=== PATIENT | female | born 1980 ===

== ENCOUNTER 2017-02-15 13:32 | Inpatient (IN) | payer OTHER ==
[2017-02-15] MEDS ORDERED: Sodium Chloride 0.9% 1,000 ML IV STA (14:20)
--- NOTE | 2017-02-15 14:25 | ED PDOC ---
HPI: General Adult Time Seen by Provider: 02/15/17 14:19 Chief Complaint (Nursing): Abdominal Pain Chief Complaint (Provider): abdominal pain History Per: Patient History/Exam Limitations: no limitations Recently: Seen In ED Additional Complaint(s): 36yo female complaining of right sided abdominal pain radiating to the back, nausea, fever 2 days ago. +Hx gallstones diagnosed in ED 2 months ago, unable to obtain access to care or surgeon thereafter. States pain worse w eating, + nausea/vomiting Past Medical History Reviewed: Historical Data, Nursing Documentation, Vital Signs Vital Signs: Last Vital Signs Temp 99 F 02/15/17 13:41 Pulse 110 H 02/15/17 13:41 Resp 20 02/15/17 13:41 BP 132/99 H 02/15/17 13:41 Pulse Ox 99 02/15/17 14:27 - Medical History PMH: Gall Bladder Disease - Surgical History Other surgeries: 2 children youngest 5yrs old - Family History Family History: States: Unknown Family Hx - Living Arrangements Living Arrangements: With Family - Social History Current smoker - smoking cessation education provided: No Drugs: Denies - Home Medications Home Medications: Ambulatory Orders Medication Instructions Recorded traMADol/Acetaminophen [Ultracet 1 tab PO Q6 PRN #20 tab 12/11/16 325 MG-37.5 MG] - Allergies Allergies/Adverse Reactions: Allergies Allergy/AdvReac Type Severity Reaction Status Date / Time No Known Allergies Allergy Verified 02/15/17 13:41 Review of Systems ROS Statement: Except As Marked, All Systems Reviewed And Found Negative Constitutional: Positive for: Fever Gastrointestinal: Positive for: Nausea, Abdominal Pain Musculoskeletal: Positive for: Back Pain Physical Exam - Reviewed Nursing Documentation Reviewed: Yes Vital Signs Reviewed: Yes - Physical Exam Appears: Positive for: Well, Non-toxic, No Acute Distress Head Exam: Positive for: ATRAUMATIC, NORMAL INSPECTION, NORMOCEPHALIC Skin: Positive for: Warm, Dry Eye Exam: Positive for: EOMI, PERRL Cardiovascular/Chest: Positive for: Regular Rate, Rhythm Respiratory: Positive for: Normal Breath Sounds. Negative for: Rales, Rhonchi, Wheezing Gastrointestinal/Abdominal: Positive for: Soft, Tenderness (right upper quadrant ), Other (+murphys) Extremity: Positive for: Normal ROM Neurologic/Psych: Positive for: Alert, Oriented - Laboratory Results Result Diagrams: 02/15/17 15:30 04/03/17 15:30 - ECG O2 Sat by Pulse Oximetry: 99 (RA) Pulse Ox Interpretation: Normal Medical Decision Making Medical Decision Makin old chart reviewed, seen last month for cholelithiasis. will repeat us workup for cholecystitis. US Abdomen, labs, IV fluids, toradol ordered. US demonstrates gallstones. Lipase pending Transaminases elevating. CT abd pelv ordered. Endorsed Dr Melgar pending CT abd pelv Results explained in chinese via [employer] interpreting. Disposition - Clinical Impression Clinical Impression: Abdominal pain, Cholelithiasis - Patient ED Disposition Is Patient to be Admitted: Transfer of Care Counseled Patient/Family Regarding: Studies Performed - Disposition Disposition: Transfer of Care Disposition Time: 18:51 Condition: STABLE Patient Signed Over To: Vicky Melgar Handoff Comments: pending CT Abd pelv and dispo Additional Comments - Additional Comments Additional Comments: Scribe Attestation: Documented by Sebastián Malin, acting as a scribe for Ras Godoy DO. Provider Scribe Attestation: All medical record entries made by the Scribe were at my direction and personally dictated by me. I have reviewed the chart and agree that the record accurately reflects my personal performance of the history, physical exam, medical decision making, and the department course for this patient. I have also personally directed, reviewed, and agree with the discharge instructions and disposition.
[2017-02-15 15:47] LABS: BASO % 0.3 % (0.0-2.0); EOS % 0.1 % (0.0-4.0); HEMATOCRIT 40.1 % (34.0-47.0); MEAN CELL VOLUME 86.8 fl (81.0-99.0); MEAN CORPUSCULAR HEMOGLOBIN 29.5 pg (27.0-31.0); MEAN PLATELET VOLUME 7.3 fl (7.2-11.7); MONO # 0.5 K/uL (0.0-0.8); MONO % 9.3 % (0.0-10.0); NEUT # 4.1 K/uL (1.8-7.0); NEUT % 72.3 % (50.0-75.0); NRBC % 0.2 % (0.0-0.0); WHITE BLOOD COUNT 5.7 K/uL (4.8-10.8)
[2017-02-15 15:58] LABS: ALB/GLOB RATIO 1.2 (1.0-2.1); ALKALINE PHOSPHATASE 80 U/L (38-126); ALT/SGPT 59 U/L (9-52); AST/SGOT 46 U/L (14-36); BILIRUBIN,TOTAL 1.9 mg/dl (0.2-1.3); BLOOD UREA NITROGEN 11 mg/dl (7-17); CALCIUM 9.2 mg/dL (8.4-10.2); CARBON DIOXIDE 27 mmol/L (22-30); CHLORIDE 101 mmol/L (98-107); GFR AFRICAN-AMERICAN > 60; GLUCOSE,RANDOM 100 mg/dL (65-105); SODIUM 143 mmol/l (132-148)
[2017-02-15 16:01] LABS: RBC URINE 5 /hpf (0-3); URINE BILIRUBIN NEGATIVE (NEGATIVE); URINE BLOOD NEGATIVE (NEGATIVE); URINE COLOR YELLOW (YELLOW); URINE GLUCOSE (UA) NEG (Normal); URINE KETONE NEGATIVE (NEGATIVE); URINE LEUKOCYTE ESTERASE TRACE Leu/uL (Negative); URINE PROTEIN NEGATIVE (NEGATIVE); URINE UROBILINOGEN 0.2-1.0 mg/dL (0.2-1.0); WBC URINE 9 /hpf (0-5)
--- NOTE | 2017-02-15 16:25 | US ---
Abdominal ultrasound in 02/15/2017. History: RUQ pain. Sonographic evaluation of the a limited to the right upper quadrant of the abdomen performed and compared with prior study 12/11/2016. Findings: The liver exhibits normal size measuring approximately 13.0 cm in CC dimension. . The liver demonstrates smooth contour and normal echotexture without obvious mass collection or calcification. No obvious hepatic mass or collection.. No ascites. The gallbladder appears physiologically distended. Re- demonstrated is intraluminal gallbladder calculi which exhibit posterior acoustic shadowing. Gallbladder wall measures 3 mm which is upper limits of normal in thickness. .No evidence of pericholecystic fluid collections or sonographic Mitchell sign. Common bile duct measures approximate 4 mm. Visualized portions of the pancreas unremarkable without evidence of mass collection calcification or significant ductal dilatation. . Spleen and left kidney have not been evaluated on this exam. . Right kidney appears unremarkable without shadowing calculi or hydronephrosis. No renal mass or collection seen. . Impression: Cholelithiasis. No evidence of pericholecystic fluid collections or sonographic Mitchell sign seen at this time to suggest acute cholecystitis
[2017-02-15] MEDS ORDERED: Iohexol 240 (50 ml) PO ONE (18:49)
[2017-02-15] MEDS ORDERED: Iohexol 240 (50 ml) ONE (19:19)
[2017-02-15] MEDS ORDERED: Sodium Chloride 0.9% 50 ML IV ONE (21:20)
[2017-02-15] MEDS ORDERED: Iohexol 300 100 ML IJ ONE (21:20)
--- NOTE | 2017-02-15 22:35 | CT ---
EXAM: CT Abdomen and Pelvis With Intravenous Contrast CLINICAL HISTORY: 36 years old, female; Pain; Abdominal pain; Localized; Right upper quadrant (ruq); Prior surgery; Surgery date: 6+ months; Surgery type: 2 c-sections; Patient HX: Gb disease; Additional info: Ruq abdominal pain. TECHNIQUE: Axial computed tomography images of the abdomen and pelvis with intravenous contrast. This CT exam was performed using one or more of the following dose reduction techniques: automated exposure control, adjustment of the mA and/or kV according to patient size, and/or use of iterative reconstruction technique. Coronal and sagittal reformatted images were created and reviewed. CONTRAST: 80 mL of [id number] administered intravenously. COMPARISON: No relevant prior studies available. FINDINGS: Lower thorax: LEFT lower lobe calcified granuloma. ABDOMEN: Liver: Unremarkable. No mass. Gallbladder and bile ducts: No calcified stones. No ductal dilation. Pancreas: No ductal dilation. No mass. Spleen: No splenomegaly. Adrenals: No mass. Kidneys and ureters: No mass. No hydronephrosis. Stomach and bowel: No definite mural thickening. No obstruction. Appendix: Normal caliber. No inflammation. PELVIS: Bladder: Unremarkable. Reproductive: Small ovarian follicles. 1.5 x 1.5 x 1.3 cm hypodense lesion within LEFT ovary. ABDOMEN and PELVIS: Intraperitoneal space: No significant fluid collection. No free air. Bones/joints: No acute fracture. Soft tissues: Unremarkable. Vasculature: Unremarkable. No abdominal aortic aneurysm. Lymph nodes: No pathologically enlarged lymph nodes. IMPRESSION: 1. Probable LEFT ovarian cyst/dominant follicle. Consider ultrasound. 2. Incidental/non-acute findings are described above.
--- NOTE | 2017-02-15 22:58 | ED PDOC ---
- Laboratory Results Result Diagrams: 02/15/17 15:30 02/15/17 15:30 - ECG O2 Sat by Pulse Oximetry: 100 Pulse Ox Interpretation: Normal - Progress ED Course And Treament: 7p Rec'd from Dr Godoy. Pt with abdominal pain, h/o gallstones and increased transminases c/w previous. US demonstrated cholelithiasis, otherwise unremarkable. Pending CT abdomen. Accession No. : [id number] Patient Name / ID : TIM AUGUSTE / [id number] Exam Date : 02/15/2017 22:10:01 ( Approved ) Study Comment : Sex / Age : F / 36Y Creator : Cameron Lundberg MD Dictator : Recreational Leader : Owner/Photographer : Cameron Lundberg MD Approver2 : Report Date : 02/15/2017 22:35:00 My Comment : [facility] Division of Radiology [address] [place] [address] Tel. no. Patient Name: YANNI NELSON Pt. Address: [address] [place] [address]. Rec #: [id number] [place] [address]: Ras Godoy DO, III Pt CELL Order Location: [facility] : 1980 Female Age: 36 Order #: [id number] Reason for exam: RUQ abdominal pain CT Scan ABD PELVIS PO IV CONTRAST Exam Date: 02/15/17 This imaging exam was performed at [facility] EXAM: CT Abdomen and Pelvis With Intravenous Contrast CLINICAL HISTORY: 36 years old, female; Pain; Abdominal pain; Localized; Right upper quadrant (ruq); Prior surgery; Surgery date: 6+ months; Surgery type: 2 c-sections; Patient HX: Gb disease; Additional info: Ruq abdominal pain. TECHNIQUE: Axial computed tomography images of the abdomen and pelvis with intravenous contrast. This CT exam was performed using one or more of the following dose reduction techniques: automated exposure control, adjustment of the mA and/or kV according to patient size, and/or use of iterative reconstruction technique. Coronal and sagittal reformatted images were created and reviewed. CONTRAST: 80 mL of [id number] administered intravenously. COMPARISON: No relevant prior studies available. FINDINGS: Lower thorax: LEFT lower lobe calcified granuloma. ABDOMEN: Liver: Unremarkable. No mass. Gallbladder and bile ducts: No calcified stones. No ductal dilation. Pancreas: No ductal dilation. No mass. Spleen: No splenomegaly. Adrenals: No mass. Kidneys and ureters: No mass. No hydronephrosis. Stomach and bowel: No definite mural thickening. No obstruction. Appendix: Normal caliber. No inflammation. PELVIS: Bladder: Unremarkable. Reproductive: Small ovarian follicles. 1.5 x 1.5 x 1.3 cm hypodense lesion within LEFT ovary. ABDOMEN and PELVIS: Intraperitoneal space: No significant fluid collection. No free air. Bones/joints: No acute fracture. Soft tissues: Unremarkable. Vasculature: Unremarkable. No abdominal aortic aneurysm. Lymph nodes: No pathologically enlarged lymph nodes. IMPRESSION: 1. Probable LEFT ovarian cyst/dominant follicle. Consider ultrasound. 2. Incidental/non-acute findings are described above. Dictated By: Cameron Lundberg MD Dictated Date/Time: 02/15/172234 Signed By: Cameron Lundberg MD Date Signed: [id number] Transcribed By: TERRELL Transcribe Date/Time : 02/15/172234 ACYP02/ASHLEE 1030p On reeval pt is in pain and nauseous. ROXANA Roberts president [employer]. Pt will be hospitalized for intractable abdominal pain. Re-evaluation Time: 22:30 Condition: Unchanged Disposition Discussed With : Mario Patino Doctor Will See Patient In The: Hospital Counseled Patient/Family Regarding: Studies Performed, Diagnosis - Clinical Impression Clinical Impression: Abdominal pain, Cholelithiasis - POA Present On Arrival: None - Disposition Disposition: Hospitalized as Observation Patient Disposition Time: 19:00 Condition: SERIOUS
[2017-02-15] MEDS ORDERED: Sodium Chloride 0.9% 1,000 ML IV SCH (23:30)
--- NOTE | 2017-02-15 23:36 | CP.PCM.HP ---
History of Present Illness - History of Present Illness History of Present Illness: CC: Abd pain/RUQ pain HPI: This is a 36 y/o female who was recently diagnosed with cholelithiasis. She comes in with severe abdominal pain and n/v. She has received pain medications but is still in severe pain, and is being admitted for pain control/ obs. Denies f/c/d. ROS: 14 systems reviewed, negative other than HPI MHx: Cholelithiasis SHx: C sec x 2 Allergies: NKDA Medications: Per med rec Family Hx: Reviewed, none relevant Social Hx: Lives with family, no tobacco or EtOH Present on Admission - Present on Admission Any Indicators Present on Admission: No Past Patient History - Past Social History Drugs: Denies - GASTROINTESTINAL Hx Gall Bladder Disease: Yes - PSYCHIATRIC Hx Substance Use: No - SURGICAL HISTORY Hx Section: Yes - ANESTHESIA Hx Anesthesia: Yes Hx Anesthesia Reactions: No Meds Allergies/Adverse Reactions: Allergies Allergy/AdvReac Type Severity Reaction Status Date / Time No Known Allergies Allergy Verified 02/15/17 13:41 Physical Exam - Constitutional Appears: No Acute Distress - Head Exam Head Exam: ATRAUMATIC - Eye Exam Eye Exam: EOMI, PERRL - ENT Exam ENT Exam: Mucous Membranes Moist - Neck Exam Neck exam: Positive for: Full Rom - Respiratory Exam Respiratory Exam: Clear to Auscultation Bilateral, NORMAL BREATHING PATTERN - Cardiovascular Exam Cardiovascular Exam: REGULAR RHYTHM, +S1, +S2 - GI/Abdominal Exam GI & Abdominal Exam: Normal Bowel Sounds, Tenderness - Extremities Exam Extremities exam: Positive for: full ROM, normal inspection - Neurological Exam Neurological exam: Alert, CN II-XII Intact, Oriented x3 - Psychiatric Exam Psychiatric exam: Normal Affect, Normal Mood - Skin Skin Exam: Dry, Warm Results - Vital Signs Recent Vital Signs: Last Vital Signs Temp 98.2 F 02/15/17 19:32 Pulse 85 02/15/17 19:32 Resp 17 02/15/17 19:32 BP 128/83 02/15/17 19:32 Pulse Ox 100 02/15/17 23:20 - Labs Result Diagrams: 02/15/17 15:30 02/15/17 15:30 - Imaging and Cardiology US - abdomen Status: Report reviewed by me (cholelithiasis) CT scan - abdomen Status: Report reviewed by me (Cholelithiasis) Assessment & Plan (1) Cholelithiasis Assessment and Plan: 36 y/o female with cholelithiasis coming in with RUQ pain not resolved with pain medications thus far. -Obs -NPO, IVF per surgery -Pain control IV, Nausea control with zofran IV -SCDs for DVT PPx Status: Acute
[2017-02-16] MEDS ORDERED: DiphenhydrAMINE 50 mg/ml Inj IVP STA (00:05)
[2017-02-16] MEDS ORDERED: DiphenhydrAMINE 50 mg/ml Inj ONE (00:11)
--- NOTE | 2017-02-16 00:13 | CP.PCM.CON ---
<Lyssa Roberts - Last Filed: 02/16/17 00:23> History of Present Illness - History of Present Illness History of Present Illness: GENERAL SURGERY CONSULT NOTE FOR DR. WEBER 36 yo female w/ history of cholelithiasis presents to the ED with RUQ abdominal pain associated with eating. Pt states that she first had the pain in June of 2016. In September she was diagnosed with cholelithiasis at a clinic. On 12/11/16 at [facility] she was seen in the ED for abdominal pain and was found to have gallstones on ultrasound. She was discharged with pain medication and told to follow up with a surgeon at the clinic, but never did. For the past 3 days, her pain has been worse than ever and when she called the community surgical clinic they advised her to go to the ED. She states she has been unable to eat all day , because it aggravates the pain/ She claims pain is unrelated to the kind of food she eats. Pt states the pain is worst in her RUQ and radiating down to her R leg. She also complains of nausea, headache and dizziness, but denies vomiting , chest pain, shortness of breath, or diarrhea. Last bowel movement was yesterday. PMHx: cholelithiasis PSH: 2 sections (2002, 2010) Allergies: NKDA Soc: (-) EtOH, drugs, tobacco Review of Systems - Review of Systems All systems: reviewed and no additional remarkable complaints except (As per HPI ) Past Patient History - Past Medical History & Family History Past Medical History?: No - Past Social History Smoking Status: Never Smoked Chewing Tobacco Use: No Cigar Use: No Alcohol: None Drugs: Denies - CARDIAC Hx Hypertension: No - GASTROINTESTINAL Hx Gall Bladder Disease: Yes - PSYCHIATRIC Hx Substance Use: No - SURGICAL HISTORY Hx Section: Yes (x2) - ANESTHESIA Hx Anesthesia: Yes Hx Anesthesia Reactions: No Meds Allergies/Adverse Reactions: Allergies Allergy/AdvReac Type Severity Reaction Status Date / Time morphine Allergy RASH Verified 02/16/17 00:54 - Medications Medications: Current Medications Dextrose/Lactated Ringer's (Dextrose 5%/Lactated Ringer's) 1,000 mls @ 100 mls/ hr IV .Q10H SHWETHA Sodium Chloride (Sodium Chloride 0.9%) 1,000 mls @ 100 mls/hr IV .Q10H SHWETHA Stop: 02/16/17 19:29 Morphine Sulfate (Morphine) 2 mg IVP Q4 PRN PRN Reason: Pain, moderate (4-7) Morphine Sulfate (Morphine) 1 mg IVP Q4 PRN PRN Reason: Pain, Mild (1-3) Ondansetron HCl (Zofran Inj) 4 mg IVP Q6 PRN PRN Reason: Nausea/Vomiting Physical Exam - Constitutional Appears: Well, Non-toxic, No Acute Distress - Head Exam Head Exam: ATRAUMATIC, NORMOCEPHALIC - Eye Exam Eye Exam: EOMI. absent: Scleral icterus Pupil Exam: NORMAL ACCOMODATION, PERRL - Respiratory Exam Respiratory Exam: NORMAL BREATHING PATTERN. absent: Respiratory Distress - Cardiovascular Exam Cardiovascular Exam: +S1, +S2. absent: JVD - GI/Abdominal Exam GI & Abdominal Exam: Soft, Tenderness. absent: Distended, Firm, Guarding, Rebound, Rigid Additional comments: mild TTP in RUQ - Extremities Exam Extremities exam: Positive for: normal inspection. Negative for: pedal edema - Neurological Exam Neurological exam: Alert, Oriented x3 - Psychiatric Exam Psychiatric exam: Anxious, Normal Affect - Skin Skin Exam: Dry, Intact, Warm Results - Vital Signs Recent Vital Signs: Last Vital Signs Temp 98.2 F 02/15/17 19:32 Pulse 85 02/15/17 19:32 Resp 17 02/15/17 19:32 BP 128/83 02/15/17 19:32 Pulse Ox 100 02/15/17 23:20 - Labs Result Diagrams: 02/15/17 15:30 02/15/17 15:30 Assessment & Plan - Assessment and Plan (Free Text) Assessment: 36 yo female w/ symptomatic cholelithiasis and hyperbilirubinemia - afebrile, tachycardia on arrival, now resolved - no leukocytosis - hyperbillirubinemia, Tbilli 1.9, was 1.3 on 12/11/16 ED visit - mildly elevated LFTs - U/S showed cholelithiasis, no pericholecystic fluid, no sign of cholecystitis , CBD 4mm - CT showed L ovarian cyst - due to new onset hyperbillirubinemia and elevated LFTs will order MRCP - NPO - IV fluids - Zofran and pain meds PRN - discussed plan with Dr. Domingo Roberts - PGY 2 <Kevin Rose - Last Filed: 02/16/17 10:22> History of Present Illness - History of Present Illness History of Present Illness: Patient was seen and examined at the bedside. Agree with resident's note above Meds - Medications Medications: Current Medications Hydromorphone HCl (Dilaudid) 0.5 mg IVP Q3H PRN PRN Reason: Pain, moderate (4-7) Dextrose/Lactated Ringer's (Dextrose 5%/Lactated Ringer's) 1,000 mls @ 100 mls/ hr IV .Q10H SHWETHA Last Admin: 02/16/17 01:56 Dose: Not Given Sodium Chloride (Sodium Chloride 0.9%) 1,000 mls @ 100 mls/hr IV .Q10H SHWETHA Stop: 02/16/17 19:29 Ondansetron HCl (Zofran Inj) 4 mg IVP Q6 PRN PRN Reason: Nausea/Vomiting Results - Vital Signs Recent Vital Signs: Last Vital Signs Temp 97.5 F L 02/16/17 08:34 Pulse 64 02/16/17 08:34 Resp 20 02/16/17 08:34 BP 106/70 02/16/17 08:34 Pulse Ox 100 02/16/17 08:34 - Labs Result Diagrams: 02/16/17 05:25 02/16/17 05:25 Labs: Laboratory Results - last 24 hr 02/16/17 05:25 WBC 4.2 L RBC 4.14 Hgb 12.0 Hct 36.4 MCV 87.9 MCH 29.0 MCHC 33.0 RDW 12.8 Plt Count 252 MPV 7.4 Neut % (Auto) 48.1 L Lymph % (Auto) 36.0 [place] % (Auto) 13.9 H Eos % (Auto) 1.5 Baso % (Auto) 0.5 Neut # 2.0 Lymph # 1.5 [place] # 0.6 Eos # 0.1 Baso # 0.0 Sodium 144 Potassium 4.2 Chloride 108 H Carbon Dioxide 23 Anion Gap 17 BUN 10 Creatinine 0.6 L Est GFR ( Amer) > 60 Est GFR (Non-Af Amer) > 60 Random Glucose 71 Calcium 8.5 Total Bilirubin 1.3 AST 37 H ALT 52 Alkaline Phosphatase 74 Total Protein 6.6 Albumin 3.5 D Globulin 3.1 Albumin/Globulin Ratio 1.1
[2017-02-16] MEDS: Dextrose 5%/Lactated Ringer's 1,000 ML IV SCH ×3 (01:56→21:48)
[2017-02-16 07:38] LABS: ALB/GLOB RATIO 1.1 (1.0-2.1); ALKALINE PHOSPHATASE 74 U/L (38-126); ALT/SGPT 52 U/L (9-52); AST/SGOT 37 U/L (14-36); BILIRUBIN,TOTAL 1.3 mg/dl (0.2-1.3); BLOOD UREA NITROGEN 10 mg/dl (7-17); CALCIUM 8.5 mg/dL (8.4-10.2); CARBON DIOXIDE 23 mmol/L (22-30); CHLORIDE 108 mmol/L (98-107); GFR AFRICAN-AMERICAN > 60; GLUCOSE,RANDOM 71 mg/dL (65-105); POTASSIUM 4.2 MMOL/L (3.6-5.0); SODIUM 144 mmol/l (132-148); TOTAL PROTEIN 6.6 G/DL (6.3-8.2)
[2017-02-16 07:46] LABS: BASO % 0.5 % (0.0-2.0); EOS # 0.1 K/uL (0.0-0.7); EOS % 1.5 % (0.0-4.0); HEMATOCRIT 36.4 % (34.0-47.0); LYMPH # 1.5 K/uL (1.0-4.3); MEAN CELL VOLUME 87.9 fl (81.0-99.0); MEAN PLATELET VOLUME 7.4 fl (7.2-11.7); MONO # 0.6 K/uL (0.0-0.8); MONO % 13.9 % (0.0-10.0); NEUT % 48.1 % (50.0-75.0); NRBC % 0.1 % (0.0-0.0); RED CELL DISTRIBUTION WIDTH 12.8 % (11.5-14.5); WHITE BLOOD COUNT 4.2 K/uL (4.8-10.8)
--- NOTE | 2017-02-16 10:54 | MRI ---
MRCP Indication: Hyperbilirubinemia Technique: Multiplanar, multisequence MR images of the abdomen were obtained, including heavily T2 weighted MRCP images of the biliary system. Rotating maximum intensity projection images of the biliary system were generated. A total of 524 images were submitted for review. Comparison: CT abdomen and pelvis with contrast performed 02/15/17, limited abdominal ultrasound performed 02/15/17 Findings: Examination limited by motion. Cholelithiasis. There is no intrahepatic biliary ductal dilatation. The common bile duct appears within normal limits in caliber and tapers distally. The pancreatic duct appears within normal limits of caliber. No filling defects are seen in the common bile duct or pancreatic duct. The imaged portions of the noncontrast liver, adrenal glands, kidneys, spleen, and pancreas appear grossly unremarkable. No bulky abdominal lymphadenopathy is seen. No ascites. No acute osseous abnormality is detected. Impression: Cholelithiasis. No filling defects seen within the common bile duct which appears within normal limits of caliber.
[2017-02-16] MEDS: HYDROmorphone 0.5 mg/0.5 ml ISec IVP PRN ×2 (12:16→16:38)
--- NOTE | 2017-02-16 13:14 | CP.PCM.PN ---
Subjective - Date & Time of Evaluation Date of Evaluation: 02/16/17 Time of Evaluation: 13:00 - Subjective Subjective: No fever complains of RUQ pain radiating to the Right lower quadrant and flank no N/V no CP no SOB no urinary sxs Objective - Vital Signs/Intake and Output Vital Signs (last 24 hours): Temp Pulse Resp BP Pulse Ox 97.5 F L 64 20 106/70 100 02/16/17 08:34 02/16/17 08:34 02/16/17 08:34 02/16/17 08:34 02/16/17 08:34 - Medications Medications: Current Medications Hydromorphone HCl (Dilaudid) 0.5 mg IVP Q3H PRN PRN Reason: Pain, moderate (4-7) Last Admin: 02/16/17 12:16 Dose: 0.5 mg Dextrose/Lactated Ringer's (Dextrose 5%/Lactated Ringer's) 1,000 mls @ 100 mls/ hr IV .Q10H SHWETHA Last Admin: 02/16/17 10:56 Dose: 100 mls/hr Sodium Chloride (Sodium Chloride 0.9%) 1,000 mls @ 100 mls/hr IV .Q10H SHWETAH Stop: 02/16/17 19:29 Ondansetron HCl (Zofran Inj) 4 mg IVP Q6 PRN PRN Reason: Nausea/Vomiting - Labs Labs: 02/16/17 05:25 02/16/17 05:25 - Constitutional Appears: No Acute Distress - Head Exam Head Exam: NORMAL INSPECTION, NORMOCEPHALIC - Eye Exam Eye Exam: EOMI, Normal appearance, PERRL Pupil Exam: NORMAL ACCOMODATION - ENT Exam ENT Exam: Mucous Membranes Dry, Normal External Ear Exam - Neck Exam Neck Exam: Full ROM. absent: Meningismus - Respiratory Exam Respiratory Exam: NORMAL BREATHING PATTERN. absent: Respiratory Distress - Cardiovascular Exam Cardiovascular Exam: REGULAR RHYTHM, +S1, +S2 - GI/Abdominal Exam GI & Abdominal Exam: Soft, Tenderness, Normal Bowel Sounds Additional comments: tenderness RUQ and RLQ - Extremities Exam Extremities Exam: Full ROM, Normal Capillary Refill. absent: Calf Tenderness, Pedal Edema - Back Exam Back Exam: Full ROM, NORMAL INSPECTION. absent: CVA tenderness (L), CVA tenderness (R), paraspinal tenderness - Neurological Exam Neurological Exam: Alert, Awake, CN II-XII Intact, Normal Gait, Oriented x3 Neuro motor strength exam: Left Upper Extremity: 5, Right Upper Extremity: 5, Left Lower Extremity: 5, Right Lower Extremity: 5 - Psychiatric Exam Psychiatric exam: Normal Affect, Normal Mood - Skin Skin Exam: Dry, Normal Color, Warm Assessment and Plan (1) Symptomatic cholelithiasis Status: Acute (2) Abnormal LFTs Status: Acute - Assessment and Plan (Free Text) Assessment: 36 y/o lady with known hx of Cholelithiasis came in because of RUQ pain . Noted to have abn LFT. CT of abd: Cholelithiasis , no CBD dilatation (1) Symptomatic cholelithiasis Status: Acute Pt came with abd pain , RUQ , worse with food, + RUQ tenderness , noted abn LFTs CT of abd : Gallstone, no signs of Cholecystitis NPO IVF hydration Surgery consult MRCP done : no CBD dilatation Plan fo Lap Oralia in am (2) Abnormal LFTs Status: Acute likely sec to above DVT proph; SCD
[2017-02-17] MEDS: Dextrose 5%/Lactated Ringer's 1,000 ML IV SCH (05:00)
[2017-02-17] MEDS: HYDROmorphone 0.5 mg/0.5 ml ISec IVP PRN ×7 (06:27→18:32)
[2017-02-17 08:19] LABS: ALB/GLOB RATIO 1.1 (1.0-2.1); ALKALINE PHOSPHATASE 63 U/L (38-126); ALT/SGPT 43 U/L (9-52); AST/SGOT 34 U/L (14-36); BILIRUBIN,TOTAL 1.1 mg/dl (0.2-1.3); BLOOD UREA NITROGEN 8 mg/dl (7-17); CALCIUM 8.9 mg/dL (8.4-10.2); CARBON DIOXIDE 26 mmol/L (22-30); CHLORIDE 106 mmol/L (98-107); GFR AFRICAN-AMERICAN > 60; GLUCOSE,RANDOM 91 mg/dL (65-105); SODIUM 143 mmol/l (132-148); TOTAL PROTEIN 6.5 G/DL (6.3-8.2)
[2017-02-17 09:34] LABS: PARTIAL THROMBOPLASTIN TIME 28.7 SECONDS (23.3-32.5)
--- NOTE | 2017-02-17 10:14 | CP.PCM.PN ---
Subjective - Date & Time of Evaluation Date of Evaluation: 02/17/17 Time of Evaluation: 10:00 - Subjective Subjective: Hospitalist Progress Note (Patient was seen and examined at 10:00 AM 02/17/17 650- 1) This is a 36 y/o female who was recently diagnosed with cholelithiasis. She came in on 02/15/17 to [facility] ER with severe abdominal pain and n/v. She received pain medication while in the ER but was still in severe pain, and was admitted for pain control. Abdominal U/S 02/15/17 showed Cholelithiasis with no evidence of pericholecystic fluid collection or sonographic Mitchell's Sign to suggest acute cholecystitis. CT Abdomen/Pelvis 02/15/17 showed Left Ovarian Cyst and LLL calcified granuloma. MRCP 02/16/17 showed cholelithiasis, no filling defects within CBD which is normal in caliber. Patient is for Laporoscopic Cholecystectomy with Surgeon Dr. Rose this morning. ROS: Has not moved bowels in 3 days secondary to decreased appetite from n/v She is currently nauseous and another STAT dose of Zofran ordered Pain in the RUQ is controlled and comes and goes Dizziness comes and goes NO other complaints upon FULL ROS Exam: HEENT: NCA, EOMI, PERRLA, Dry mucous membranes in oral mucosa and nasal turbinates, NO lymphadenopathy, NO thyromegaly Cardiology: NS1 and NS2, NO M/R/G Respiratory: CTA B/L, NO R/R/W GI: RUQ pain minimal but NO rebound/guarding, Soft, BS x 4, NO HSM Ext: NO edema, Capillary Refill is 2 seconds, Pulses are strong and equal Neurology: CN II through XII are grossly intact Assessment and Plan: 1). Symptomatic Cholelithiasis For Lap Oralia with Surgery Dr. Rose this morning Dilaudid 0.5 mg IVQ3H PRN Pain Zofran 4 mg IV Q6H PRN N/V D5 LR @ 100 mL/hour Objective - Vital Signs/Intake and Output Vital Signs (last 24 hours): Temp Pulse Resp BP Pulse Ox 97.4 F L 56 L 20 109/73 99 02/17/17 08:13 02/17/17 08:13 02/17/17 08:13 02/17/17 08:13 02/17/17 08:13 Intake and Output: 02/17/17 02/17/17 06:59 18:59 Intake Total 1200 Balance 1200 - Medications Medications: Current Medications Hydromorphone HCl (Dilaudid) 0.5 mg IVP Q3H PRN PRN Reason: Pain, moderate (4-7) Last Admin: 02/17/17 06:27 Dose: 0.5 mg Dextrose/Lactated Ringer's (Dextrose 5%/Lactated Ringer's) 1,000 mls @ 100 mls/ hr IV .Q10H SHWET[facility] Last Admin: 02/17/17 05:00 Dose: Not Given Ondansetron HCl (Zofran Inj) 4 mg IVP Q6 PRN PRN Reason: Nausea/Vomiting Last Admin: 02/17/17 06:24 Dose: 4 mg - Labs Labs: 02/17/17 05:35 PT 11.1 SECONDS (9.6-11.2) 02/17/17 05:35 INR 1.07 (0.92-1.08) 02/17/17 05:35 APTT 28.7 SECONDS (23.3-32.5) 02/17/17 05:35
[2017-02-17] MEDS ORDERED: Rocuronium 10 mg/ml (5 ml) ONE (10:59)
[2017-02-17] MEDS ORDERED: Propofol 10 mg/ml Inj (20 ML) ONE (10:59)
[2017-02-17] MEDS ORDERED: Neostigmine Methylsulfate 2 MG/2 ML ML IV ONE (11:00)
[2017-02-17] MEDS ORDERED: Succinylcholine 200 mg/10 ml Inj IV ONE (11:06)
[2017-02-17] MEDS ORDERED: Bupivacaine 0.5% Inj(30mL) ONE (11:10)
[2017-02-17] MEDS ORDERED: Lactated Ringer's 1,000 ML IV ONE (11:45)
[2017-02-17] MEDS ORDERED: Bupivacaine 0.5% 50 ML IJ ONE ×2 (11:54→12:44)
--- NOTE | 2017-02-17 13:00 | PCM.SURG1 ---
Surgeon's Initial Post Op Note - Surgeon's Notes Surgeon: Dr. Rose Lumber Handler: Dr. Lane, Dr. Salcedo PGY2 Type of Anesthesia: General Endo Pre-Operative Diagnosis: Symptomatic Cholelithiasis Operative Findings: see operative report Post-Operative Diagnosis: same Operation Performed: Laparoscopic Cholecystectomy Specimen/Specimens Removed: gallbladder Estimated Blood Loss: EBL {In ML}: 5 Blood Products Given: N/A Drains Used: No Drains Post-Op Condition: Good Date of Surgery/Procedure: 02/17/17 Time of Surgery/Procedure: 12:59
--- NOTE | 2017-02-17 14:55 | OP ---
PROCEDURE DATE: 02/17/2017 PREOPERATIVE DIAGNOSIS: Symptomatic cholelithiasis. POSTOPERATIVE DIAGNOSIS: Symptomatic cholelithiasis. PROCEDURE: Laparoscopic cholecystectomy. SURGEON: Kevin Rose MD BRAZING FURNACE OPERATOR: Dr. Domingo JACKSON BRAZING FURNACE OPERATOR: Dr. Salcedo ANESTHESIA: General with endotracheal intubation. INTRAVENOUS FLUIDS: Crystalloids. ESTIMATED BLOOD LOSS: 5 mL. INTRAOPERATIVE FINDINGS: Cholelithiasis. SPECIMEN: Gallbladder with stones. BRIEF HISTORY: The patient is a very pleasant 36-year-old female who came to the hospital complaining of epigastric and right upper quadrant abdominal pain. Upon further investigation, patient was found to have elevated liver enzymes and underwent MRCP. However, there appeared to be no choledocholithiasis and subsequently, patient's liver enzymes have normalized. All the risks and benefits of the procedure were explained to the patient and with the patient having a full understanding of all the risks and benefits involved, informed consent was obtained and patient was taken to the operating room for above stated procedure. DESCRIPTION OF PROCEDURE: The patient was brought into the operating room and placed supine on the operating table. Bilateral Flowtron boots were applied to patient's lower extremities. After successful induction of anesthesia and successful endotracheal intubation by the anesthesia team, patient's abdomen was prepped with ChloraPrep stick and draped in the standard surgical fashion. Prior to the beginning of procedure, timeout was called in the room and everyone in the room were in agreement. The patient received prophylactic Ancef antibiotic. Using a Veress needle, patient's abdomen was entered at the umbilicus and pneumoperitoneum was achieved with good opening pressures. Once this was accomplished, using an 11 blade scalpel knife, approximately a 1 cm incision was made in the umbilicus in the longitudinal fashion and subsequent to that, the 11 mm trocar was introduced into the patient's abdomen. Then, subsequent to that, a 5 mm 0-degree scope was introduced into the patient's abdomen and abdomen was inspected. Attention was turned to the subxyphoid area. Using 11 blade scalpel knife, 5 mm incision was made in transverse fashion and subsequent to that, another 5 mm trocar was introduced into the patient's abdomen. Then, attention was turned to the right side of the patient' s abdomen. Using an 11 blade scalpel knife, two 5 mm incisions were made in transverse fashion using 11 blade scalpel knife and subsequent to that, another two 5 mm trocars were introduced into the patient's abdomen. At that point in time, gallbladder was grasped at the fundus and the infundibulum and using the [place] dissector, cystic duct and cystic artery were dissected out and critical view of safety was achieved. Cystic duct was clipped with 2 clips proximal and 1 distal and transected with laparoscopic scissor. Same thing was done for the cystic artery. It was clipped with 2 clips proximal and 1 distal and transected with laparoscopic scissor. At that point in time, gallbladder was dissected off the gallbladder fossa using hook electrical cautery. Once the gallbladder was completely freed up from the gallbladder fossa, EndoCatch bag was introduced into the patient's abdomen. The gallbladder was placed inside of the bag and the bag was closed. At that point in time, gallbladder fossa was inspected for hemostasis. Hemostasis was confirmed. The patient's gallbladder fossa and abdominal cavity were copiously irrigated with sterile saline and the fluid was suctioned out. At that point in time, 11 mm trocar together with EndoCatch bag and gallbladder were removed from the patient's abdomen and passed off to the [facility] as a specimen. At that point in time, fascial layer at the umbilical port site was closed with [id number] suture of 0 Vicryl on UR-5 needle. At that point in time, patient's abdomen was fully desufflated. The rest of the trocars were removed from the patient's abdomen and skin was closed with 4-0 Monocryl suture in a running subcuticular fashion. At the end of the procedure, incision sites were infiltrated with Marcaine anesthetic. The patient's abdomen was washed and dried and a Dermabond was applied to the incision sites. The patient was successfully extubated by the anesthesia team, transferred to the [facility] and taken to the recovery room in a stable condition. At the end of the procedure, all instrument counts, needles and sponges were correct. Kevin Rose MD cc: [id number] TT: 02/17/2017 14:55:27 en MTDD
[2017-02-17] MEDS: Lactated Ringer's 1,000 ML IV SCH ×2 (18:03→23:53)
[2017-02-18] MEDS ORDERED: Simethicone 80 mg Chewtab PO STA (03:19)
[2017-02-18 12:52] LABS: BASO % 0.2 % (0.0-2.0); EOS % 0.3 % (0.0-4.0); HEMATOCRIT 34.2 % (34.0-47.0); LYMPH # 1.3 K/uL (1.0-4.3); LYMPH % 18.7 % (20.0-40.0); MEAN CORPUSCULAR HEMOGLOBIN 29.8 pg (27.0-31.0); MEAN CORPUSCULAR HGB CONC 34.8 g/dL (33.0-37.0); MEAN PLATELET VOLUME 7.1 fl (7.2-11.7); MONO # 0.7 K/uL (0.0-0.8); MONO % 9.5 % (0.0-10.0); NEUT % 71.3 % (50.0-75.0); RED CELL DISTRIBUTION WIDTH 12.5 % (11.5-14.5)
[2017-02-18 12:53] LABS: MEAN CELL VOLUME 85.6 fl (81.0-99.0)
[2017-02-18 13:07] LABS: CHLORIDE 102 mmol/L (98-107)
[2017-02-18 13:08] LABS: POTASSIUM 3.8 MMOL/L (3.6-5.0); SODIUM 138 mmol/l (132-148)
[2017-02-18 13:10] LABS: ALB/GLOB RATIO 1.2 (1.0-2.1); AST/SGOT 41 U/L (14-36); BILIRUBIN,TOTAL 1.2 mg/dl (0.2-1.3); BLOOD UREA NITROGEN 7 mg/dl (7-17); CARBON DIOXIDE 28 mmol/L (22-30); GFR AFRICAN-AMERICAN > 60; TOTAL PROTEIN 6.7 G/DL (6.3-8.2)
[2017-02-18 13:11] LABS: ALKALINE PHOSPHATASE 65 U/L (38-126); ALT/SGPT 46 U/L (9-52); CALCIUM 8.6 mg/dL (8.4-10.2); GLUCOSE,RANDOM 104 mg/dL (65-105)
--- NOTE | 2017-02-18 13:19 | CP.PCM.PN ---
<Reggie Almonte - Last Filed: 02/18/17 14:20> Subjective - Date & Time of Evaluation Date of Evaluation: 02/18/17 Time of Evaluation: 11:40 - Subjective Subjective: 36 y/o F admitted for RUQ, s/p lap cholecystectomy seen on POD1 at bedside. Patient c/o abd pain in RUQ controlled with pain meds, also c/o persistent nausea without episode of vomiting since last night. She states she has only eaten 2 tsp of oatmeal since Sx and icechips because she is still nauseated and is afraid to vomit. She ambulated yesterday night with no difficulty but this morning she has not tried yet. No bowel movement or flatus reported but is aware of her own borborygmi. Denies CP, calf pain, headache, SOB. Objective - Vital Signs/Intake and Output Vital Signs (last 24 hours): Temp Pulse Resp BP Pulse Ox 98.4 F 90 20 110/66 96 02/18/17 09:00 02/18/17 07:50 02/18/17 07:50 02/18/17 09:00 02/18/17 07:50 - Medications Medications: Current Medications Lactated Ringer's (Lactated Ringer's) 1,000 mls @ 100 mls/hr IV .Q10H [facility] Last Admin: 02/17/17 23:53 Dose: Not Given Metoclopramide HCl (Reglan) 10 mg IVP Q6 [facility] Last Admin: 02/18/17 11:42 Dose: 10 mg Morphine Sulfate (Morphine) 2 mg IVP Q4 PRN PRN Reason: Pain, moderate (4-7) Morphine Sulfate (Morphine) 4 mg IVP Q4 PRN PRN Reason: Pain, severe (8-10) Ondansetron HCl (Zofran Inj) 4 mg IVP Q6 PRN PRN Reason: Nausea/Vomiting Last Admin: 02/18/17 05:57 Dose: 4 mg - Labs Labs: 02/18/17 12:40 02/18/17 12:40 PT 11.1 SECONDS (9.6-11.2) 02/17/17 05:35 INR 1.07 (0.92-1.08) 02/17/17 05:35 APTT 28.7 SECONDS (23.3-32.5) 02/17/17 05:35 - Constitutional Appears: Non-toxic - Head Exam Head Exam: ATRAUMATIC, NORMAL INSPECTION - Eye Exam Eye Exam: PERRL - ENT Exam ENT Exam: Mucous Membranes Moist, Normal Exam - Neck Exam Neck Exam: Full ROM, Normal Inspection - Respiratory Exam Respiratory Exam: Clear to Ausculation Bilateral, NORMAL BREATHING PATTERN - Cardiovascular Exam Cardiovascular Exam: REGULAR RHYTHM, +S1, +S2. absent: Murmur - GI/Abdominal Exam GI & Abdominal Exam: Soft, Tenderness (RUQ and periumbilical area. ), Normal Bowel Sounds. absent: Rebound - Extremities Exam Extremities Exam: Full ROM, Normal Capillary Refill, Normal Inspection. absent : Calf Tenderness - Neurological Exam Neurological Exam: Alert, Awake, Oriented x3 - Psychiatric Exam Psychiatric exam: Normal Affect, Normal Mood - Skin Skin Exam: Pallor (mild), Warm. absent: Rash Assessment and Plan - Assessment and Plan (Free Text) Assessment: 1) Symptomatic Cholelithiasis S/P Lap Cholecystectomy POD1 Unable to DC home due to persistent nausea, pain and not tolerating PO Switch diet to liquid WBC 7, Hgb 11.9, Hct 34.2 AST/ALT trending down Dilaudid stopped because of persistent nausea Morphine 2mg IV q4h prn for moderate pain Morphine 4mg IV q4h prn for severe pain Zofran 4 mg IV Q6H PRN N/V D5 LR @ 100 mL/hour Cont F/U Sx recommendations 2) DVT prophylaxis SCD <Ruel Lopez - Last Filed: 02/18/17 19:26> Objective - Vital Signs/Intake and Output Vital Signs (last 24 hours): Temp Pulse Resp BP Pulse Ox 98.9 F 71 18 124/80 99 02/18/17 17:04 02/18/17 17:04 02/18/17 17:04 02/18/17 17:04 02/18/17 17:04 - Medications Medications: Current Medications Sodium Chloride (Sodium Chloride 0.9%) 1,000 mls @ 80 mls/hr IV .[id number] [facility] Stop: 02/19/17 17:31 Lactulose (Enulose) 20 gm PO DAILY PRN PRN Reason: Constipation Last Admin: 02/18/17 17:31 Dose: 20 gm Metoclopramide HCl (Reglan) 10 mg IVP Q6 [facility] Last Admin: 02/18/17 16:45 Dose: 10 mg Ondansetron HCl (Zofran Inj) 4 mg IVP Q6 PRN PRN Reason: Nausea/Vomiting Last Admin: 02/18/17 05:57 Dose: 4 mg Oxycodone/Acetaminophen (Percocet 5/325 Mg Tab) 1 tab PO Q4 PRN PRN Reason: Pain, moderate (4-7) Stop: 02/21/17 17:19 Oxycodone/Acetaminophen (Percocet 5/325 Mg Tab) 2 tab PO Q6 PRN PRN Reason: Pain, severe (8-10) Stop: 02/21/17 17:20 Last Admin: 02/18/17 17:32 Dose: 2 tab Pantoprazole Sodium (Protonix Ec Tab) 40 mg PO DAILY [facility] Last Admin: 02/18/17 18:48 Dose: 40 mg - Labs Labs: 02/18/17 12:40 02/18/17 12:40 PT 11.1 SECONDS (9.6-11.2) 02/17/17 05:35 INR 1.07 (0.92-1.08) 02/17/17 05:35 APTT 28.7 SECONDS (23.3-32.5) 02/17/17 05:35 Attending/Attestation - Attestation I have personally seen and examined this patient.: Yes I have fully participated in the care of the patient.: Yes I have reviewed all pertinent clinical information, including history, physical exam and plan: Yes Notes (Text): 02/18/17 19:21 Hospitalist Addendum Note Patient was seen and examined at 10:50 AM 02/18/17 in 650-1 Exam, Assessment and Plan were thoroughly discussed with the Wireless Sales Representative. At the time of my exam, patient had just vomited up some the bannana and oatmeal that she had tried to eat for breakfast. Her diet was changed back to clear liquids and then for this evening her diet was changes to Regular by my colleague Dr. Watson. There was the possibility of the pain medication Dilaudid as the cause of ther nausea leading to vomiting therefore this was changed to Percocet. Disposition: if she tolerates her diet, if pain is controlled, if no more episodes of n/v, and she has bowel movement/flatus, then consider for discharge morning of 02/19/17 after speaking with Surgery. Ruel Lopez D.O. 02/18/17 19:26
--- NOTE | 2017-02-18 16:00 | CP.PCM.PN ---
Subjective - Date & Time of Evaluation Date of Evaluation: 02/18/17 Time of Evaluation: 07:15 - Subjective Subjective: GENERAL SURGERY Progress Note 36 yo female seen at bedside 1 day status post laparoscopic cholecystectomy. Pt reports post-operative nausea and vomitting last event of note was yesterday evening @10pm. Pt denies fever and chills at this time. Pt has right upper flank pain/discomfort. Pts rigtical site is painful graded 5/10 under control with pain control meds. Objective - Vital Signs/Intake and Output Vital Signs (last 24 hours): Temp Pulse Resp BP Pulse Ox 97.8 F 74 16 121/72 98 02/18/17 13:00 02/18/17 13:00 02/18/17 13:00 02/18/17 13:00 02/18/17 13:00 - Medications Medications: Current Medications Lactated Ringer's (Lactated Ringer's) 1,000 mls @ 100 mls/hr IV .Q10H [facility] Last Admin: 02/17/17 23:53 Dose: Not Given Metoclopramide HCl (Reglan) 10 mg IVP Q6 [facility] Last Admin: 02/18/17 11:42 Dose: 10 mg Morphine Sulfate (Morphine) 2 mg IVP Q4 PRN PRN Reason: Pain, moderate (4-7) Morphine Sulfate (Morphine) 4 mg IVP Q4 PRN PRN Reason: Pain, severe (8-10) Ondansetron HCl (Zofran Inj) 4 mg IVP Q6 PRN PRN Reason: Nausea/Vomiting Last Admin: 02/18/17 05:57 Dose: 4 mg - Labs Labs: 02/18/17 12:40 02/18/17 12:40 PT 11.1 SECONDS (9.6-11.2) 02/17/17 05:35 INR 1.07 (0.92-1.08) 02/17/17 05:35 APTT 28.7 SECONDS (23.3-32.5) 02/17/17 05:35 - Constitutional Appears: Well, Non-toxic, No Acute Distress - Eye Exam Eye Exam: Normal appearance, PERRL - ENT Exam ENT Exam: Mucous Membranes Moist, Normal Exam - Respiratory Exam Respiratory Exam: Clear to Ausculation Bilateral, NORMAL BREATHING PATTERN - Cardiovascular Exam Cardiovascular Exam: REGULAR RHYTHM, +S1, +S2 - GI/Abdominal Exam GI & Abdominal Exam: Tenderness. absent: Distended, Firm, Rigid Additional comments: Incision sites are well coapted. no tatianna-incisional drainage, hematoma, or erythema. - Neurological Exam Neurological Exam: Alert, Awake, Oriented x3 - Skin Skin Exam: Intact, Normal Color, Warm Assessment and Plan - Assessment and Plan (Free Text) Assessment: 36 year old female 1 day S/p Laparoscopic Cholecystectomy Plan: Pt evaluated at bedside with attending Dr. Lane. - Contunue diet as tolerated. - Adjusted pain meds - Pt to begin ambulating and weight-bearing as tolerated. - Continue to monitor status pos-operatively.
[2017-02-18] MEDS: Lactated Ringer's 1,000 ML IV SCH (16:46)
[2017-02-18] MEDS ORDERED: Oxycodone/Acetaminophen 5/325 mg Tab PO PRN ×2 (17:18→17:19)
[2017-02-18] MEDS: Pantoprazole 40 mg EC Tab PO SCH (18:48)
[2017-02-18] MEDS: Sodium Chloride 0.9% 1,000 ML IV SCH (21:27)
[2017-02-19] MEDS: Sodium Chloride 0.9% 1,000 ML IV SCH (06:00)
[2017-02-19 07:50] VITALS: BP 110/74; PULSE 85; RESP 20; TEMP 98.8; O2SAT 97
--- NOTE | 2017-02-19 07:50 | CP.PCM.PN ---
Subjective - Date & Time of Evaluation Date of Evaluation: 02/19/17 Time of Evaluation: 07:48 - Subjective Subjective: General Surgery - Dr. Rose Pt S&E. HUGO. Pt states her pain is better today, only has mild pain to the incisions. Pt is tolerating regular diet. She has been OOB ambulating. No N/V , F/C, SOB/CP Objective - Vital Signs/Intake and Output Vital Signs (last 24 hours): Temp Pulse Resp BP Pulse Ox 97.8 F 74 19 116/74 96 02/19/17 01:00 02/18/17 21:00 02/18/17 21:00 02/18/17 21:00 02/18/17 21:00 - Medications Medications: Current Medications Sodium Chloride (Sodium Chloride 0.9%) 1,000 mls @ 80 mls/hr IV .[id number] [facility] Stop: 02/19/17 17:31 Last Admin: 02/19/17 06:00 Dose: Not Given Lactulose (Enulose) 20 gm PO DAILY PRN PRN Reason: Constipation Last Admin: 02/18/17 17:31 Dose: 20 gm Metoclopramide HCl (Reglan) 10 mg IVP Q6 [facility] Last Admin: 02/19/17 04:00 Dose: Not Given Ondansetron HCl (Zofran Inj) 4 mg IVP Q6 PRN PRN Reason: Nausea/Vomiting Last Admin: 02/18/17 05:57 Dose: 4 mg Oxycodone/Acetaminophen (Percocet 5/325 Mg Tab) 1 tab PO Q4 PRN PRN Reason: Pain, moderate (4-7) Stop: 02/21/17 17:19 Oxycodone/Acetaminophen (Percocet 5/325 Mg Tab) 2 tab PO Q6 PRN PRN Reason: Pain, severe (8-10) Stop: 02/21/17 17:20 Last Admin: 02/18/17 17:32 Dose: 2 tab Pantoprazole Sodium (Protonix Ec Tab) 40 mg PO DAILY [facility] Last Admin: 02/18/17 18:48 Dose: 40 mg - Labs Labs: 02/18/17 12:40 02/18/17 12:40 PT 11.1 SECONDS (9.6-11.2) 02/17/17 05:35 INR 1.07 (0.92-1.08) 02/17/17 05:35 APTT 28.7 SECONDS (23.3-32.5) 02/17/17 05:35 - Constitutional Appears: No Acute Distress - Head Exam Head Exam: ATRAUMATIC, NORMOCEPHALIC - Respiratory Exam Respiratory Exam: NORMAL BREATHING PATTERN. absent: Respiratory Distress - Cardiovascular Exam Cardiovascular Exam: REGULAR RHYTHM - GI/Abdominal Exam GI & Abdominal Exam: Soft, Tenderness (appropriate). absent: Distended, Guarding, Rigid, Rebound Additional comments: incisions C/D/I with dermabond - Neurological Exam Neurological Exam: Alert, Oriented x3 - Psychiatric Exam Psychiatric exam: Normal Affect, Normal Mood - Skin Skin Exam: Dry, Intact Assessment and Plan - Assessment and Plan (Free Text) Assessment: 36yo F s/p lap cholecystectomy, POD #2 -Doing well post-operatively -Regular diet -PO pain meds -Clear for discharge from surgical standpoint -Pt may shower and resume regular light activities, avoid heavy lifting >10lbs -Pt may F/U in office w/ Dr. Rose [place] [address] Milton Salcedo PGY2
[2017-02-19 07:52] LABS: BASO % 0.2 % (0.0-2.0); EOS % 0.6 % (0.0-4.0); HEMATOCRIT 35.5 % (34.0-47.0); LYMPH # 1.5 K/uL (1.0-4.3); LYMPH % 20.5 % (20.0-40.0); MEAN CELL VOLUME 86.9 fl (81.0-99.0); MEAN CORPUSCULAR HEMOGLOBIN 29.4 pg (27.0-31.0); MEAN CORPUSCULAR HGB CONC 33.8 g/dL (33.0-37.0); MEAN PLATELET VOLUME 7.6 fl (7.2-11.7); MONO # 0.7 K/uL (0.0-0.8); MONO % 9.2 % (0.0-10.0); NEUT # 5.1 K/uL (1.8-7.0); NEUT % 69.5 % (50.0-75.0); RED CELL DISTRIBUTION WIDTH 12.6 % (11.5-14.5); WHITE BLOOD COUNT 7.3 K/uL (4.8-10.8)
[2017-02-19 07:53] LABS: ALB/GLOB RATIO 1.1 (1.0-2.1); ALKALINE PHOSPHATASE 77 U/L (38-126); ALT/SGPT 52 U/L (9-52); AST/SGOT 60 U/L (14-36); BILIRUBIN,TOTAL 1.2 mg/dl (0.2-1.3); BLOOD UREA NITROGEN 5 mg/dl (7-17); CALCIUM 8.4 mg/dL (8.4-10.2); CARBON DIOXIDE 28 mmol/L (22-30); CHLORIDE 104 mmol/L (98-107); GFR AFRICAN-AMERICAN > 60; GLUCOSE,RANDOM 84 mg/dL (65-105); POTASSIUM 3.7 MMOL/L (3.6-5.0); SODIUM 144 mmol/l (132-148); TOTAL PROTEIN 7.1 G/DL (6.3-8.2)
[2017-02-19] MEDS: Pantoprazole 40 mg EC Tab PO SCH (08:34)
--- NOTE | 2017-02-19 09:11 | CP.PCM.DIS ---
Provider - Provider Date of Admission: 02/16/17 17:24 Attending physician: Mario Patino MD Time Spent in preparation of Discharge (in minutes): 35 Diagnosis - Discharge Diagnosis (1) Symptomatic cholelithiasis Status: Acute Comment: Improved. S/P lap Cholecystectomy. Stable. F/U with Sx in 1 week Hospital Course - Lab Results Lab Results: Most Recent Lab Values WBC 7.3 K/uL (4.8-10.8) 02/19/17 05:20 RBC 4.09 Mil/uL (3.80-5.20) 02/19/17 05:20 Hgb 12.0 g/dL (12.0-16.0) 02/19/17 05:20 Hct 35.5 % (34.0-47.0) 02/19/17 05:20 MCV 86.9 fl (81.0-99.0) 02/19/17 05:20 MCH 29.4 pg (27.0-31.0) 02/19/17 05:20 MCHC 33.8 g/dL (33.0-37.0) 02/19/17 05:20 RDW 12.6 % (11.5-14.5) 02/19/17 05:20 Plt Count 303 K/uL (130-400) 02/19/17 05:20 MPV 7.6 fl (7.2-11.7) 02/19/17 05:20 Neut % (Auto) 69.5 % (50.0-75.0) 02/19/17 05:20 Lymph % (Auto) 20.5 % (20.0-40.0) 02/19/17 05:20 Edwards % (Auto) 9.2 % (0.0-10.0) 02/19/17 05:20 Eos % (Auto) 0.6 % (0.0-4.0) 02/19/17 05:20 Baso % (Auto) 0.2 % (0.0-2.0) 02/19/17 05:20 Neut # 5.1 K/uL (1.8-7.0) 02/19/17 05:20 Lymph # 1.5 K/uL (1.0-4.3) 02/19/17 05:20 Edwards # 0.7 K/uL (0.0-0.8) 02/19/17 05:20 Eos # 0.0 K/uL (0.0-0.7) 02/19/17 05:20 Baso # 0.0 K/uL (0.0-0.2) 02/19/17 05:20 PT 11.1 SECONDS (9.6-11.2) 02/17/17 05:35 INR 1.07 (0.92-1.08) 02/17/17 05:35 APTT 28.7 SECONDS (23.3-32.5) 02/17/17 05:35 Sodium 144 mmol/l (132-148) 02/19/17 05:20 Potassium 3.7 MMOL/L (3.6-5.0) 02/19/17 05:20 Chloride 104 mmol/L (98-107) 02/19/17 05:20 Carbon Dioxide 28 mmol/L (22-30) 02/19/17 05:20 Anion Gap 16 (10-20) 02/19/17 05:20 BUN 5 mg/dl (7-17) L 02/19/17 05:20 Creatinine 0.7 mg/dL (0.7-1.2) 02/19/17 05:20 Est GFR ( Amer) > 60 02/19/17 05:20 Est GFR (Non-Af Amer) > 60 02/19/17 05:20 Random Glucose 84 mg/dL (65-105) 02/19/17 05:20 Calcium 8.4 mg/dL (8.4-10.2) 02/19/17 05:20 Total Bilirubin 1.2 mg/dl (0.2-1.3) 02/19/17 05:20 AST 60 U/L (14-36) H D 02/19/17 05:20 ALT 52 U/L (9-52) 02/19/17 05:20 Alkaline Phosphatase 77 U/L (38-126) 02/19/17 05:20 Total Protein 7.1 G/DL (6.3-8.2) 02/19/17 05:20 Albumin 3.7 g/dL (3.5-5.0) 02/19/17 05:20 Globulin 3.3 gm/dL (2.2-3.9) 02/19/17 05:20 Albumin/Globulin Ratio 1.1 (1.0-2.1) 02/19/17 05:20 Lipase 69 U/L (23-300) 02/15/17 18:35 Urine Color Yellow (YELLOW) 02/15/17 15:20 Urine Clarity Slighty-cloudy (Clear) 02/15/17 15:20 Urine pH 7.0 (5.0-8.0) 02/15/17 15:20 Ur Specific [place] 1.013 (1.003-1.030) 02/15/17 15:20 Urine Protein Negative mg/dL (NEGATIVE) 02/15/17 15:20 Urine Glucose (UA) Neg mg/dL (Normal) 02/15/17 15:20 Urine Ketones Negative mg/dL (NEGATIVE) 02/15/17 15:20 Urine Blood Negative (NEGATIVE) 02/15/17 15:20 Urine Nitrate Negative (NEGATIVE) 02/15/17 15:20 Urine Bilirubin Negative (NEGATIVE) 02/15/17 15:20 Urine Urobilinogen 0.2-1.0 mg/dL (0.2-1.0) 02/15/17 15:20 Ur Leukocyte Esterase Trace Denita/uL (Negative) 02/15/17 15:20 Urine RBC (Auto) 5 /hpf (0-3) H 02/15/17 15:20 Urine Microscopic WBC 9 /hpf (0-5) H 02/15/17 15:20 Ur Squamous Epith Cells 5 /hpf (0-5) 02/15/17 15:20 Urine HCG, Qual Negative (NEGATIVE) 02/16/17 05:00 - Hospital Course Hospital Course: 36 y/o F, admitted for persistent RUQ associated with nausea and vomiting. No fever, palpitations, diarrhea, CP, headache or SOB at the time. She was admitted for further evaluation by Sx team. Abd US, abd CT and MRCP showed Cholelithiasis without cholecystitis or duct obstruction. Bili was elevated on admission(1.9). Patient was started on IV Abx(Unasyn), pain meds and zofran. She underwent Lap Cholecystectomy because of symptomatic cholelithiasis and on POD1 she was stable but nauseated and unable to tolerated PO. Abd soft, tender, no rebound or guarding. She continued afebrile and bili trending down. She was evaluated with the Sx team and recs were follow to keep patient in the hospital due to persistent nausea, unable to tolerate PO and pain. Today POD2 patient is doing better. She is evaluated at bedside in not acute distress. Afebrile. Pain has improved. +Flatus. No new episodes of vomiting and nausea has resolved since yesterday evening. Tolerating PO reg diet. Bili today 1.2. CBC WNL. Discussed with Sx resident and patient is cleared from Sx point of view with f/u with Dr Rose in 1 week. Discharge Exam - Head Exam Head Exam: ATRAUMATIC, NORMOCEPHALIC - Eye Exam Eye Exam: EOMI, Normal appearance, PERRL - ENT Exam ENT Exam: Normal Exam - Neck Exam Neck exam: Full Rom, Normal Inspection - Respiratory Exam Respiratory Exam: Clear to PA & Lateral, NORMAL BREATHING PATTERN, UNREMARKABLE - Cardiovascular Exam Cardiovascular Exam: REGULAR RHYTHM, RRR, +S1, +S2. absent: Systolic Murmur - GI/Abdominal Exam GI & Abdominal Exam: Normal Bowel Sounds, Tenderness (RUQ and periumbilical area tenderness. No rebound or guarding.). absent: Distended, Rebound - Extremities Exam Extremities exam: full ROM, normal capillary refill - Back Exam Back exam: NORMAL INSPECTION. absent: CVA tenderness (L), CVA tenderness (R) - Neurological Exam Neurological exam: Alert, CN II-XII Intact, Oriented x3, Reflexes Normal - Psychiatric Exam Psychiatric exam: Normal Affect, Normal Mood - Skin Skin Exam: Normal Color, Warm Discharge Plan - Discharge Medications Prescriptions: Docusate [Colace] 100 mg PO BID #14 cap oxyCODONE/Acetaminophen [Percocet 5/325 mg Tab] 1 tab PO Q4 PRN #20 tab PRN Reason: Pain, Moderate (4-7) Pantoprazole [Protonix EC Tab] 40 mg PO DAILY #14 ect Metoclopramide [Reglan] 10 mg PO Q8 #10 tab - Follow Up Plan Condition: SERIOUS Disposition: HOME/ ROUTINE Instructions: Laparoscopic Cholecystectomy (DC) Additional Instructions: F/U with Surgery, Dr Rose in 1 week. If patient needs PMD she can f/u at [address] for primary care. Referrals: Kevin Rose MD [Staff Provider] - 1 Week
== END 2017-02-19 12:09 | disposition home or self-care (01) | DRG 494 ==
LOC: H.ER 13:32 → H.ERHOLD 19:00 → H.EROBSV 19:00 → H.MEDSURG1 02-16 01:34 → OBSVTOIN 02-16 17:24
PROVIDERS: ADMIT Internal Medicine; ATTEND Internal Medicine
PROC: 0FT44ZZ Resection of Gallbladder, Percutaneous Endoscopic Approach (ICD-10-PCS; principal; 2017-02-17 11:45)
DX: K80.20 Calculus of gallbladder without cholecystitis without obstruction (principal)

== ENCOUNTER 2018-05-12 18:25 | Emergency (ER) | payer SELFPAY ==
[2018-05-12 18:37] VITALS: RESP 18; O2SAT 100
[2018-05-12] MEDS ORDERED: Iohexol 240 (50 ml) PO ONE (19:21)
[2018-05-12] MEDS ORDERED: Sodium Chloride 0.9% 1,000 ML IV STA (19:22)
--- NOTE | 2018-05-12 20:32 | ED PDOC ---
"HPI: Abdomen Time Seen by Provider: 05/12/18 19:07 Chief Complaint (Nursing): Abdominal Pain History Per: Patient History/Exam Limitations: no limitations Onset/Duration Of Symptoms: Days Outside of [place] travel?: No Current Symptoms Are (Timing): Still Present Location Of Pain/Discomfort: RLQ Quality Of Discomfort: Cramping Associated Symptoms: Nausea, Diarrhea, Constipation. denies: Fever, Chills, Vomiting Additional Complaint(s): No PMHx presenting with abdominal pain x 4 days, states it's R sided, R flank and RLQ/suprapubic, constant, she states it's associated with both constipation and diarrhea, states she has not been able to have a normal BM since the pain started. No vomiting. No urinary symptoms, no fevers. S/P 2 C-sections and cholecystectomy. Past Medical History Reviewed: Historical Data, Nursing Documentation, Vital Signs Vital Signs: Last Vital Signs Temp 98.3 F 05/12/18 18:30 Pulse 88 05/12/18 18:30 Resp 18 05/12/18 18:30 BP 138/93 H 05/12/18 18:30 Pulse Ox 100 05/12/18 20:40 - Medical History PMH: Gall Bladder Disease Denies: HIV, HTN, Chronic Kidney Disease - Family History Family History: States: Unknown Family Hx - Home Medications Home Medications: Ambulatory Orders Medication Instructions Recorded Docusate [Colace] 100 mg PO BID #14 cap 02/19/17 Metoclopramide [Reglan] 10 mg PO Q8 #10 tab 02/19/17 Pantoprazole [Protonix EC Tab] 40 mg PO DAILY #14 ect 02/19/17 oxyCODONE/Acetaminophen [Percocet 1 tab PO Q4 PRN #20 tab 02/19/17 5/325 mg Tab] Simethicone [Gas Relief] 80 mg PO BID #20 tab.chew 05/13/18 - Allergies Allergies/Adverse Reactions: Allergies Allergy/AdvReac Type Severity Reaction Status Date / Time morphine Allergy RASH Verified 05/12/18 18:29 Review of Systems ROS Statement: Except As Marked, All Systems Reviewed And Found Negative Gastrointestinal: Positive for: Nausea, Abdominal Pain, Diarrhea, Constipation Physical Exam - Reviewed Nursing Documentation Reviewed: Yes Vital Signs Reviewed: Yes - Physical Exam Appears: Positive for: Well, Non-toxic, No Acute Distress Head Exam: Positive for: ATRAUMATIC, NORMAL INSPECTION, NORMOCEPHALIC Skin: Positive for: Normal Color, Warm, DRY Eye Exam: Positive for: EOMI, Normal appearance, PERRL ENT: Positive for: Normal ENT Inspection Neck: Positive for: Normal, Painless ROM Cardiovascular/Chest: Positive for: Regular Rate, Rhythm Respiratory: Positive for: CNT, Normal Breath Sounds Gastrointestinal/Abdominal: Positive for: Normal Exam, Bowel Sounds, Soft, Tenderness (Negative McBurney's, tender in suprapubic/R suprapubic region) Back: Positive for: R CVA Tenderness Extremity: Positive for: Normal ROM Neurologic/Psych: Positive for: Alert, Oriented - Laboratory Results Result Diagrams: 05/12/18 20:51 05/12/18 20:51 - ECG O2 Sat by Pulse Oximetry: 100 Pulse Ox Interpretation: Normal Medical Decision Making Medical Decision MakinPM A/P: Hx of c-sections, cholecystectomy presenting with abdominal pain -patient is very well appearing, normal vital signs -symptoms are vague, unclear as to etiology -ddx: kidney stone v. uti v. pyelo v. appendicitis v. colitis v. gas v. IBS -will get labs, imaging -will give toradol, bentyl, and IVF -pending re-eval after workup 3AM EXAM: CT Abdomen and Pelvis With Intravenous Contrast EXAM DATE/TIME: 05/13/2018 CLINICAL HISTORY: 37 years old, female; Pain; Abdominal pain; Localized; Right; Prior surgery; Surgery date: 6+ months; Surgery type: Gall bladder removed. x 2; Additional info: R sided abdominal pain x 4 days TECHNIQUE: Axial computed tomography images of the abdomen and pelvis with intravenous contrast. All CT scans at this facility use at least one of these dose optimization techniques: automated exposure control; mA and/or kV adjustment per patient size (includes targeted exams where dose is matched to clinical indication); or iterative reconstruction. Oral contrast was administered. CONTRAST: 90 ml of [id number] administered intravenously. COMPARISON: No relevant prior exam is available at the time of interpretation. FINDINGS: Lower thorax: No pulmonary airspace consolidation or pleural fluid collection in the imaged portion of the thorax. ABDOMEN: Liver: Diffuse fatty infiltration of the liver. Gallbladder and bile ducts: Status post cholecystectomy. No biliary ductal dilation. Pancreas: No acute findings. Spleen: No acute findings. Adrenals: No acute findings. Kidneys and ureters: No acute findings. Stomach and bowel: No bowel obstruction or other evident acute abnormality of the stomach, small bowel, or colon. Appendix: Normal appendix. 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 If there is a discrepancy between the preliminary and final interpretation, please notify [facility] via [email or web address]. If you do not have access to our QA portal, call our QA team at [phone] CONFIDENTIALITY STATEMENT This report is intended only for the use of the referring physician, and only in accordance with law, If you received this in error, call [phone] Page 2 of 2 Bladder: Mild circumferential bladder wall thickening. The bladder is only mildly distended. Reproductive: An 18 mm peripherally enhancing, low attenuation left adnexal lesion is consistent with an ovarian corpus luteum. Apparent small uterine fibroids. No evident acute abnormality of the gynecologic structures. ABDOMEN and PELVIS: Intraperitoneal space: No free intraperitoneal air. A small amount of free fluid in the posterior cul de sac is physiologic in amount. Bones/joints: No acute findings. Several subcentimeter sclerotic bone lesions are likely bone islands. Soft tissues: No acute findings. Vasculature: No acute findings. The abdominal aorta is normal in caliber. Lymph nodes: No enlarged abdominal or pelvic lymph nodes by CT criteria. IMPRESSION: 1. Normal appendix. 2. Mild circumferential bladder wall thickening may be artifactual due to limited luminal distention but differential diagnosis also includes cystitis. 3. 18 mm left ovarian corpus luteum. 4. Additional non-acute findings as described above. Thank you for allowing us to participate in the care of your patient. Dictated and Authenticated by: Brenda Lipscomb MD 05/13/2018 1:38 AM Eastern Time ([place] & [place]) Patient re-evaluated, states she's feeling much better after simethicone. Patient was given results and advised to followup in clinic. Return precautions discussed. Disposition - Clinical Impression Clinical Impression: Gas pain - Patient ED Disposition Is Patient to be Admitted: No - Disposition Referrals: [facility] [Outside] Disposition: Routine/Home Disposition Time: 03:29 Condition: IMPROVED Prescriptions: Simethicone [Gas Relief] 80 mg PO BID #20 tab.chew Instructions: Gas and Bloating Forms: [facility] (Iranian) Print Language: WELSH"
[2018-05-12 20:58] LABS: BASO % 0.3 % (0.0-2.0); EOS # 0.1 K/uL (0.0-0.7); EOS % 0.9 % (0.0-4.0); HEMOGLOBIN 13.9 g/dL (12.0-16.0); LYMPH # 2.2 K/uL (1.0-4.3); LYMPH % 25.3 % (20.0-40.0); MEAN CELL VOLUME 88.4 fl (81.0-99.0); MEAN CORPUSCULAR HEMOGLOBIN 30.2 pg (27.0-31.0); MEAN CORPUSCULAR HGB CONC 34.2 g/dL (33.0-37.0); MEAN PLATELET VOLUME 7.5 fl (7.2-11.7); MONO # 0.9 K/uL (0.0-0.8); MONO % 9.7 % (0.0-10.0); NEUT # 5.6 K/uL (1.8-7.0); NEUT % 63.8 % (50.0-75.0); NRBC % 0.1 % (0.0-0.0); RBC 4.59 Mil/uL (3.80-5.20); RED CELL DISTRIBUTION WIDTH 12.6 % (11.5-14.5); WHITE BLOOD COUNT 8.7 K/uL (4.8-10.8)
[2018-05-12 21:23] LABS: URINE BILIRUBIN NEGATIVE (NEGATIVE); URINE BLOOD NEGATIVE (NEGATIVE); URINE CLARITY SLIGHT-CLOUDY (Clear); URINE COLOR YELLOW (YELLOW); URINE GLUCOSE (UA) NEGATIVE (Normal)
[2018-05-12 21:24] LABS: SQUAMOUS EPITHIAL 4 /hpf (0-5); URINE LEUKOCYTE ESTERASE NEGATIVE Leu/uL (Negative); URINE PROTEIN NEGATIVE (NEGATIVE); URINE UROBILINOGEN 0.2 mg/dL (0.2-1.0)
[2018-05-12 21:28] LABS: CALCIUM 9.1 mg/dL (8.4-10.2); GFR AFRICAN-AMERICAN > 60; GFR NON-AFRICAN AMERICAN > 60
[2018-05-12 21:29] LABS: BLOOD UREA NITROGEN 10 mg/dl (7-17)
[2018-05-13] MEDS ORDERED: Simethicone 80 mg Chewtab PO STA (00:10)
[2018-05-13] MEDS ORDERED: Sodium Chloride 0.9% 50 ML IV ONE (00:16)
[2018-05-13] MEDS ORDERED: Iohexol 300 100 ML IJ ONE (00:16)
[2018-05-13 03:55] VITALS: BP 132/84; PULSE 82; TEMP 98
--- NOTE | 2018-05-13 08:42 | CT ---
PROCEDURE: CT Abdomen and Pelvis with contrast HISTORY: R sided abdominal pain x 4 days COMPARISON: Abdomen pelvis CT with contrast 02/15/2017. TECHNIQUE: Contrast dose: Omnipaque 300 Radiation dose: Total exam DLP = 200.70 mGy-cm. This CT exam was performed using one or more of the following dose reduction techniques: Automated exposure control, adjustment of the mA and/or kV according to patient size, and/or use of iterative reconstruction technique. FINDINGS: LOWER THORAX: Unremarkable. LIVER: Diminished hepatic attenuation is appreciated without focal mass or intrahepatic biliary duct dilatation. GALLBLADDER AND BILE DUCTS: Interval cholecystectomy identified. Normal caliber CBD. PANCREAS: Unremarkable. No gross lesion or ductal dilatation. SPLEEN: Unremarkable. ADRENALS: Unremarkable. No mass. KIDNEYS AND URETERS: Unremarkable. No hydronephrosis. No solid mass. VASCULATURE: Unremarkable. No aortic aneurysm. BOWEL: Unremarkable. No obstruction. No gross mural thickening. APPENDIX: Normal appendix. PERITONEUM: Trace fluid is noted in the cul-de-sac potentially from recent adnexal cyst rupture. Etiology uncertain. No free intraperitoneal gas or mesenteric edema. LYMPH NODES: Unremarkable. No enlarged lymph nodes. BLADDER: Unremarkable. REPRODUCTIVE: Fluid in the cul-de-sac as discussed above in peritoneal section. An 18 mm left adnexal cyst is identified. BONES: No acute fracture. OTHER FINDINGS: None. IMPRESSION: 1. Normal appendix. 2. Trace cul-de-sac fluid may reflect recent adnexal cyst rupture with an 18 mm left adnexal cyst identified. Follow-up transvaginal pelvic ultrasonography can be utilized if clinically warranted.
== END 2018-05-13 03:55 | disposition home or self-care (01) ==
LOC: H.ER 18:25
DX: R14.1 Gas pain (principal); K58.9 Irritable bowel syndrome, unspecified
CPT/HCPCS: 74177; 80048; 81003; 81025; 85025; 96374; 99284; J1885; J7030; Q9966; Q9967